=== PATIENT | female | born 1990 | race Caucasian/White ===

== ENCOUNTER → 2020-01-30 | Outpatient (CLI) | payer BC ==
[~2020-01-30] MED LIST: ACHD5005 PO; CEPH500C PO
== END ==
LOC: LAB 09:42
PROVIDERS: ATTEND Obstetrics & Gynecology
DX: N97.9 Female infertility, unspecified (principal)
CPT/HCPCS: 36415; 84144

== ENCOUNTER → 2020-03-10 | Outpatient (CLI) | payer BC ==
--- NOTE | 2020-03-10 17:24 | Diagnostic Imaging Report ---
PROCEDURE: US Non-ob pelvis comp/trans. TECHNIQUE: Multiple realtime grayscale images were obtained of the pelvis in various projections endovaginally. Transabdominal imaging was also performed. INDICATION: Polycystic ovarian syndrome, infertility. COMPARISON: None available. FINDINGS: The uterus measures 6.7 x 3.1 x 4.1 cm. No focal uterine mass. The endometrium measures 0.5 cm, which is within normal limits. The bilateral ovaries were unable to be visualized despite several attempts. No abnormal adnexal mass lesion. No significant free fluid. IMPRESSION: 1. The bilateral ovaries were unable to be visualized despite several attempts. 2. The uterus is unremarkable with the endometrium being within normal limits. Dictated by: Dictated on workstation # [id number]
== END ==
LOC: RAD 14:58
PROVIDERS: ATTEND Family Medicine
DX: E28.2 Polycystic ovarian syndrome (principal)
CPT/HCPCS: 76830; 76856